=== PATIENT | male | born 1955 | race Caucasian/White ===

== ENCOUNTER 2018-04-28 21:45 | Emergency (ER) | payer MEDICARE, OTHER ==
[2018-04-28 22:59] LABS: CHLORIDE,CL 103 mmol/L (98-107); SODIUM,NA 140 mmol/L (136-145)
[2018-04-28 23:03] LABS: ANION GAP 10.8 mmol/L (10-20)
[2018-04-28] MEDS: Iopamidol 612 MG/ML 100 ML Bottle IVPUSH ONE (23:22)
--- NOTE | 2018-05-01 07:37 | EDM.PDOC ---
ED HPI GENERAL MEDICAL PROBLEM - General Chief Complaint: Chest Pain Stated Complaint: Left mid chest/back pain, mets cancer Time Seen by Provider: 04/28/18 22:00 Source of Information: Reports: Patient History Limitations: Reports: No Limitations - History of Present Illness INITIAL COMMENTS - FREE TEXT/NARRATIVE: Pt. presents to ER with left sided anterior chest pain, respirophasic in nature. Pt. has diagnosed with metastatic colon CA, and is on hospice. He is not experiencing any increased shortness of breath, but he does suffer from severe COPD. He was started on hospice. Because the family has brought him to the ER, hospice has informed the patient and ER that he will be being discharged from hospice. Pt. daughter and daughter in law state that they have not been accompanying pt. to his oncology appointments, and state that they are unaware of his prognosis or clear diagnosis. Pt. states that he is not experiencing any calf pain, abdominal pain, or headache. He has had issues with atypical chest pain in the past secondary to COPD. He has not been experiencing any significant cough, congestion, fever or chills. He characterizes the discomfort as sharp with radiation into the back and worse with movement. Location: Reports: Chest, Back Quality: Reports: Sharp, Stabbing Severity: Moderate Improves with: Reports: Rest Worsens with: Reports: Movement Treatments POLICY CHANGE CLERK: Reports: Other (see below) Other Treatments POLICY CHANGE CLERK: Oxycodone prior to coming in. left mid chest/back Pain Score (Numeric/FACES): 3 - Related Data Allergies Allergy/AdvReac Type Severity Reaction Status Date / Time acetaminophen [From Tylenol] Allergy Other Verified 04/28/18 22:26 Past Medical History Cardiovascular History: Reports: Afib, Heart Failure, Other (See Below) Other Cardiovascular History: Pericardial effusion, Respiratory History: Reports: Bronchitis, Recurrent, COPD Other Respiratory History: hypoxia Gastrointestinal History: Reports: Other (See Below) Other Gastrointestinal History: Bowel obstuction Endocrine/Metabolic History: Reports: Other (See Below) Other Endocrine/Metabolic History: Hypomagnesemia - Past Surgical History GI Surgical History: Reports: Colostomy Other GI Surgeries/Procedures: Metastatic adenocarcinoma ED ROS GENERAL - Review of Systems Review Of Systems: See Below Constitutional: Reports: Malaise, Weakness, Fatigue, Decreased Appetite. Denies : Fever, Chills HEENT: Reports: No Symptoms Respiratory: Reports: Shortness of Breath, Pleuritic Chest Pain. Denies: Cough , Sputum, Hemoptysis Cardiovascular: Reports: Chest Pain, Dyspnea on Exertion. Denies: Lightheadedness, Orthopnea, Palpitations, PND Endocrine: Reports: No Symptoms GI/Abdominal: Reports: No Symptoms : Reports: Other (History of stage 4 colon cancer) Musculoskeletal: Reports: No Symptoms Skin: Reports: No Symptoms Neurological: Reports: No Symptoms Psychiatric: Reports: No Symptoms Hematologic/Lymphatic: Reports: No Symptoms Immunologic: Reports: No Symptoms ED EXAM, GENERAL - Physical Exam Exam: See Below Exam Limited By: No Limitations General Appearance: Alert, WD/WN, Anxious, Mild Distress, Cachetic Eye Exam: Bilateral Eye: EOMI, Normal Fundi, Normal Inspection, PERRL Throat/Mouth: Normal Inspection, Normal Lips, Normal Gums, Normal Oropharynx, Normal Voice, No Airway Compromise Head: Atraumatic, Normocephalic Neck: Normal Inspection, Supple, Non-Tender, Full Range of Motion Respiratory/Chest: Decreased Breath Sounds, Prolonged Expiration, Other (non- reproducible chest wall pain) EKG INTERPRETATION Rhythm: A-Fib QRS: Normal ST-T: Normal QT: Normal Comparison: NA - No Prior EKG Course - Vital Signs Last Recorded V/S: Last Vital Signs Temp 36.8 C 04/28/18 21:45 Pulse 100 04/28/18 21:45 Resp 20 04/28/18 21:45 BP 107/77 04/28/18 21:45 Pulse Ox 96 04/28/18 21:45 - Orders/Labs/Meds Labs: Laboratory Tests 04/28/18 04/28/18 04/28/18 Range/Units 22:22 22:22 22:22 WBC 7.8 (4.0-10.0) x10^3/uL RBC 3.98 L (4.5-6.0) x10^6/uL Hgb 10.2 L (14.0-18.0) g/dL Hct 32.5 L (40.0-52.0) % MCV 81.7 (78.0-93.0) fL MCH 25.6 L (26.0-32.0) pg MCHC 31.4 L (32.0-36.0) g/dL RDW Coeff of Sanchez 18.3 H (10.0-15.0) % Plt Count 447 H (130-400) x10^3/uL Neut % (Auto) 73.9 (50.0-80.0) % Lymph % (Auto) 13.8 L (25.0-50.0) % [place] % (Auto) 8.5 (2.0-11.0) % Eos % (Auto) 3.2 (0.0-4.0) % Baso % (Auto) 0.6 (0.2-1.2) % PT 54.2 H (9.6-11.4) SEC INR 5.3 H* (2.0-3.5) D-Dimer, Quantitative 0.99 H (<=0.58) mg/LFEU Sodium 140 (136-145) mmol/L Potassium 2.8 L* (3.5-5.1) mmol/L Chloride 103 (98-107) mmol/L Carbon Dioxide 29 (21-32) mmol/L Anion Gap 10.8 (10-20) mmol/L BUN 8 (7-18) mg/dL Creatinine 0.9 (0.70-1.30) mg/dL Est Cr Clr Drug Dosing 82.99 mL/min Estimated GFR (MDRD) > 60 Glucose 138 H (74-106) mg/dL Calcium 10.3 H (8.5-10.1) mg/dL Corrected Calcium 11.90 H (8.5-10.1) mg/dL Total Bilirubin 0.7 (0.2-1.0) mg/dL AST 173 H (15-37) U/L ALT 164 H (16-63) U/L Alkaline Phosphatase 793 H (46-116) U/L Troponin I < 0.017 (<=0.056) ng/mL C-Reactive Protein 6.1 H (<=0.9) mg/dL Total Protein 6.7 (6.4-8.2) g/dL Albumin 2.0 L (3.4-5.0) g/dL Globulin 4.7 Albumin/Globulin Ratio 0.43 Meds: Medications Discontinued Medications Generic Name Dose Route Start Last Admin Trade Name Freq PRN Reason Stop Dose Admin Iopamidol 100 ml 04/28/18 23:12 04/28/18 23:22 Isovue-300 (61%) IVPUSH 04/28/18 23:13 100 ml ONETIME ONE Administration - Radiology Interpretation Free Text/Narrative:: chest x ray did not reveal any acute process. There was hyperinflation consistent with COPD. CT angiogram of the chest was negative for PE or other acute pathology. There were scattered densities in the chest consistent with metastatic disease. Departure - Departure Time of Disposition: 23:50 Disposition: Home, Self-Care 01 Clinical Impression: Atypical chest pain - Discharge Information Instructions: Nonspecific Chest Pain, [id number] Referrals: Raiza Ding DO [Primary Care Provider] - Forms: ED Department Discharge Additional Instructions: The cause of your pain is either due to your COPD, cancer, or both. Your cardiac workup was normal. There is no embolism in your lung. Continue with oral pain medication at needed for pain. Follow-up in clinic as needed. - Assessment/Plan Plan: Hold coumadin for 2 doses. Follow-up in clinic within the next 2-3 days. They are interested in starting on hospice again and will be looking into this. I did discuss the diagnosis and prognosis with the patient and family.
== END 2018-04-28 23:50 | disposition home or self-care (01) ==
LOC: MERGE 21:45 → VM.ED 21:45
DX: R07.89 Other chest pain (principal); C18.9 Malignant neoplasm of colon, unspecified; C79.9 Secondary malignant neoplasm of unspecified site; J44.9 Chronic obstructive pulmonary disease, unspecified; I50.9 Heart failure, unspecified; Z88.8 Allergy status to other drugs, medicaments and biological substances
CPT/HCPCS: 36415; 71046; 71275; 80053; 84484; 85025; 85379; 85610; 86140; 93005; 99285; Q9967

== ENCOUNTER 2018-05-11 22:38 | Inpatient (IN) | payer MEDICARE, OTHER ==
[2018-05-11] MEDS ORDERED: Lactated Ringers 1,000 ML IV ONE (23:00)
[2018-05-11] MEDS ORDERED: Sodium Chloride 0.9% 10 ML Syringe FLUSH PRN (23:00)
--- NOTE | 2018-05-11 23:06 | EDM.PDOC ---
ED HPI GENERAL MEDICAL PROBLEM - General Chief Complaint: Syncope Stated Complaint: syncope, weak Time Seen by Provider: 05/11/18 22:46 Source of Information: Reports: Patient History Limitations: Reports: No Limitations - History of Present Illness INITIAL COMMENTS - FREE TEXT/NARRATIVE: Please use ER history and physical for admission H and P. Patient with known metastatic colon cancer and on hospice is brought in this evening with reports of being weak, and having a syncopal episode today. He does still live at home alone. He was out with his sons earlier today when the syncopal event took place. He was here 05/01/18 and had an entire work up for chest pain which was negative for [place], PE, but he did have an elevated INR. Warfarin was held for 2 days. Chest x-ray at that time did show hyperinflation and scattered nodules indicating lung metastases. He does have pain to the left upper abdomen/rib cage. Rates it a 3/10. Does describe some shortness of breath, however he does have COPD and this is a chronic condition. He denies it is worse for him at this time. Denies any blood in stool, does admit to some in the urine. He does have a colostomy that is intact. No complaints with this. No complaints of headache, or neck pain. He denies recent fever, chills , night sweats, diaphoresis. He is aware that he has terminal cancer. Assist of 2 and wheelchair. Patient did sign out of hospice to be seen in the ER tonight. Onset: Gradual Duration: Getting Worse Location: Reports: Generalized Quality: Reports: Ache Severity: Mild Improves with: Reports: None Worsens with: Reports: Movement Context: Reports: Activity Associated Symptoms: Reports: Syncope - Related Data Allergies Allergy/AdvReac Type Severity Reaction Status Date / Time acetaminophen Allergy Nausea Verified 05/11/18 23:26 Home Meds: Home Meds Albuterol [Ventolin HFA] 2 puff INH Q4HR PRN 05/11/18 [History] Albuterol/Ipratropium [DuoNeb 3.0-0.5 MG/3 ML] 3 ml INH BID 05/11/18 [History] Morphine Sulfate [Morphine Sulfate ER] 15 mg PO Q12HR 05/11/18 [History] Morphine [Morphine 20 MG/ML Soln] 5 mg BUCCAL ASDIRECTED PRN 05/11/18 [History] predniSONE [Prednisone] 5 mg PO DAILY 05/11/18 [History] Past Medical History Cardiovascular History: Reports: Afib, Blood Clots/VTE/DVT, Heart Failure, Other (See Below) Other Cardiovascular History: Pericardial effusion, Respiratory History: Reports: Bronchitis, Recurrent, COPD Other Respiratory History: hypoxia Gastrointestinal History: Reports: Other (See Below) Other Gastrointestinal History: Bowel obstuction Musculoskeletal History: Reports: Other (See Below) Other Musculoskeletal History: Busted right elbows Endocrine/Metabolic History: Reports: Other (See Below) Other Endocrine/Metabolic History: Hypomagnesemia Oncologic (Cancer) History: Reports: Colon, Metastatic - Past Surgical History GI Surgical History: Reports: Colostomy Other GI Surgeries/Procedures: Metastatic adenocarcinoma Social & Family History - Caffeine Use Caffeine Use: Reports: Coffee, Soda ED ROS GENERAL - Review of Systems Review Of Systems: See Below Constitutional: Reports: Weakness, Weight Loss HEENT: Reports: No Symptoms Respiratory: Reports: Shortness of Breath Cardiovascular: Reports: No Symptoms Endocrine: Reports: Fatigue GI/Abdominal: Reports: Abdominal Pain, Anorexia, Constipation : Reports: Hematuria Musculoskeletal: Reports: No Symptoms Skin: Reports: No Symptoms Neurological: Reports: Syncope Psychiatric: Reports: No Symptoms Hematologic/Lymphatic: Reports: No Symptoms Immunologic: Reports: No Symptoms - Physical Exam Exam: See Below Exam Limited By: No Limitations General Appearance: Alert, WD/WN, No Apparent Distress Eye Exam: Bilateral Eye: EOMI, Papilledema, PERRL Ears: Normal TMs Nose: Normal Inspection, Normal Mucosa, No Blood Throat/Mouth: Normal Inspection, Normal Lips, Normal Teeth, Normal Gums, Normal Oropharynx, Normal Voice, No Airway Compromise Head Exam: Atraumatic, Normocephalic Neck: Normal Inspection Respiratory/Chest: Lungs Clear, No Accessory Muscle Use Cardiovascular: Normal Peripheral Pulses, No Rub, Irregularly Irregular GI/Abdominal: Normal Bowel Sounds, Soft, Non-Tender, No Organomegaly, No Distention, No Abnormal Bruit, No Mass, Guarding Neuro Exam (Abbreviated): Alert, Oriented, CN II-XII Intact, Normal Cognition, Normal Gait, Normal Reflexes, No Motor/Sensory Deficits Extremities: Normal Inspection, Normal Range of Motion, Non-Tender, No Pedal Edema, Normal Capillary Refill Psychiatric: Normal Affect, Normal Mood Skin Exam: Warm, Dry, Intact, Jaundice Departure - Departure Time of Disposition: 00:32 Disposition: Refer to Observation Clinical Impression: Dehydration, Warfarin-induced coagulopathy, CAP (community acquired pneumonia) - Discharge Information Forms: ED Department Discharge ED Communication - Discussed Case With (1) Discussed Case With (1): Other (I did call Dr. Ding regarding patient's presentation here. Suggested observation for rehydration, Vit. K administration.) - Problem List & Annotations (1) Colon carcinoma metastatic to multiple sites SNOMED Code(s): 59082779, 333392107 Code(s): C18.9 - MALIGNANT NEOPLASM OF COLON, UNSPECIFIED Status: Chronic Priority: High Current Visit: No (2) Dehydration SNOMED Code(s): 78404903 Code(s): E86.0 - DEHYDRATION Status: Acute Priority: Medium Current Visit: Yes - Problem List Review Problem List Initiated/Reviewed/Updated: Yes - Assessment/Plan Assessment:: dehydration coagulopathy weakness Plan: admit to observation for hydration, coagulopathy treatment 1. Dehydration rehydrate with fluids - LR at 125 mL/hr, reevaluate in AM with cmp 2. Coagulopathy Vitamin k administered in ER, repeat INR in AM 3. Weakness PT consultation for strengthening 4. Vulnerable adult/failure to thrive Social work consultation with Aidlia Hector in AM for possible swing bed admission 5. Community Acquired Pneumonia IV antibiotics - Rocephin, azithromycin
[2018-05-11 23:35] LABS: CHLORIDE,CL 100 mmol/L (98-107); SODIUM,NA 134 mmol/L (136-145)
[2018-05-11 23:38] LABS: ANION GAP 9.9 mmol/L (10-20)
[2018-05-12] MEDS: Lactated Ringers 1,000 ML IV SCH ×3 (01:41→17:56)
[2018-05-12] MEDS ORDERED: Ondansetron 4 MG Tab.DIS PO PRN (04:27)
[2018-05-12] MEDS ORDERED: Morphine 2 MG/ML Syringe IVPUSH PRN (04:27)
[2018-05-12] MEDS ORDERED: Albuterol 0.083% 2.5 MG/3 ML Neb Soln INH PRN (04:32)
[2018-05-12 08:07] LABS: CHLORIDE,CL 102 mmol/L (98-107); SODIUM,NA 134 mmol/L (136-145)
[2018-05-12 08:14] LABS: ANION GAP 5.8 mmol/L (10-20)
[2018-05-12] MEDS: Morphine 15 MG Tab.ER PO SCH ×2 (08:29→19:30)
[2018-05-12] MEDS: predniSONE 5 MG Tab PO SCH (08:31)
[2018-05-12] MEDS: Sertraline 25 MG Tab PO SCH (08:31)
[2018-05-12] MEDS: Albuterol/Ipratropium 3.0-0.5 MG/3 ML Neb Soln INH SCH ×2 (08:48→19:32)
[2018-05-12] MEDS ORDERED: Azithromycin 500 MG in Sodium Chloride 0.9% 250 ML IV SCH (10:30)
--- NOTE | 2018-05-12 11:29 | PCM.SN ---
- Free Text/Narrative Note: Phone call with SALONI Will, and Dr. Smiley Ding regarding patient status. Will change status to acute due to pneumonia and IV antibiotic treatment. Jorge to do admission orders today.
[2018-05-12] MEDS: cefTRIAXone 1 GM Vial IVPUSH SCH (11:38)
--- NOTE | 2018-05-12 19:28 | PCM.HP ---
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 He does still live at home alone. He was out with his sons earlier yesterday when the syncopal event took place. He was here and had an entire work up for chest pain which was negative for GA, PE, but he did have an elevated INR. Warfarin was held for 2 days. Chest x-ray at that time did show hyperinflation and scattered nodules indicating lung metastases. He does have pain to the left upper abdomen/rib cage. Rates it a 3 /10. Does describe some shortness of breath, however he does have COPD and this is a chronic condition. He denies it is worse for him at this time. Denies any blood in stool, does admit to some in the urine. He does have a colostomy that is intact. No complaints with this. No complaints of headache, or neck pain. He denies recent fever, chills, night sweats, diaphoresis. He is aware that he has terminal cancer. Assist of 2 and wheelchair. Patient did sign out of hospice to be seen in the ER last night. Patient was first diagnosed with Colon CA February 2018. He had been admitted to the hospital for COPD exacerbation when the diagnosis was made. It is felt by Oncology that the patient would not survive chemo or radiation due to the invasiveness of the cancer, so home Hospice was advised. Patient has had a considerable amount of weight loss over the past couple of months. His pain is controlled with Oxycodone and Morphine. Patient was also recently diagnosed with a DVT and started on Coumadin. His INR's of late have been supratherapeutic , possibly 2/2 to mets to liver. left side, LUQ abdomen Pain Score (Numeric/FACES): 3 - Related Data Allergies/Adverse Reactions: Allergies Allergy/AdvReac Type Severity Reaction Status Date / Time acetaminophen Allergy Nausea Verified 05/11/18 23:26 Home Medications: Home Meds Albuterol [Ventolin HFA] 1 - 2 puff INH Q4HR PRN 05/11/18 [History] Albuterol/Ipratropium [DuoNeb 3.0-0.5 MG/3 ML] 3 ml INH BID 05/11/18 [History] Morphine Sulfate [Morphine Sulfate ER] 15 mg PO Q12HR 05/11/18 [History] Morphine [Morphine 20 MG/ML Soln] 5 mg BUCCAL Q1H PRN 05/11/18 [History] predniSONE [Prednisone] 5 mg PO DAILY 05/11/18 [History] Sertraline [Zoloft] 25 mg PO DAILY 05/12/18 [History] Past Medical History Cardiovascular History: Reports: Afib, Blood Clots/VTE/DVT, Heart Failure, Other (See Below) Other Cardiovascular History: Pericardial effusion, Respiratory History: Reports: Bronchitis, Recurrent, COPD Other Respiratory History: hypoxia Gastrointestinal History: Reports: Other (See Below) Other Gastrointestinal History: Bowel obstuction Musculoskeletal History: Reports: Other (See Below) Other Musculoskeletal History: Busted right elbows Endocrine/Metabolic History: Reports: Other (See Below) Other Endocrine/Metabolic History: Hypomagnesemia Oncologic (Cancer) History: Reports: Colon, Metastatic - Past Surgical History GI Surgical History: Reports: Colostomy Other GI Surgeries/Procedures: Metastatic adenocarcinoma Social & Family History - Family History Family Medical History: Noncontributory - Tobacco Use Smoking Status *Q: Former Smoker Years of Tobacco use: 55 Packs/Tins Daily: 1 Used Tobacco, but Quit: Yes Month/Year Tobacco Last Used: 03/2018 Second Hand Smoke Exposure: No - Caffeine Use Caffeine Use: Reports: Coffee - Recreational Drug Use Recreational Drug Use: No - Living Situation & Occupation Living situation: Reports: Alone Occupation: Disabled H&P Review of Systems - Review of Systems: Review Of Systems: See Below General: Reports: Weakness, Fatigue, Decreased Appetite, Weight Loss. Denies: Fever, Chills Pulmonary: Reports: Shortness of Breath (chronic). Denies: Cough Cardiovascular: Denies: Chest Pain, Palpitations Gastrointestinal: Reports: Decreased Appetite, Nausea. Denies: Abdominal Pain, Black Stool, Bloody Stool, Diarrhea, Vomiting Skin: Reports: Jaundice Neurological: Reports: Weakness. Denies: Dizziness, Headache Exam - Exam Exam: See Below - Vital Signs Vital Signs: Last Vital Signs Temp 36.4 C 05/12/18 17:03 Pulse 113 H 05/12/18 17:03 Resp 20 05/12/18 17:03 BP 106/69 05/12/18 17:03 Pulse Ox 91 L 05/12/18 14:00 Weight: 70.307 kg - Exam Quality Assessment: Supplemental Oxygen. No: DVT Prophylaxis General: Alert, Cooperative HEENT: Other (jaundice bilateral) Lungs: Normal Respiratory Effort, Decreased Breath Sounds, Wheezing (end expiratory) Cardiovascular: Regular Rate, Regular Rhythm, Normal S1, Normal S2 GI/Abdominal Exam: Soft, Tender (generalized), Abnormal Bowel Sounds (Hypoactive ), Other (Colostomy LLQ; intact; light brown watery stools) Peripheral Pulses: 1+: Radial (L), Radial (R) Skin: Warm, Dry, Intact Neuro Extensive - Mental Status: Alert, Disorientation to Time. No: Disorientation to Person, Disorientation to Place Psychiatric: Labile Mood - Patient Data Lab Results Last 24 hrs: Laboratory Results - last 24 hr 05/11/18 05/11/18 05/11/18 Range/Units 23:00 23:00 23:00 WBC 13.7 H (4.0-10.0) x10^3/uL RBC 4.38 L (4.5-6.0) x10^6/uL Hgb 11.8 L D (14.0-18.0) g/dL Hct 37.2 L (40.0-52.0) % MCV 84.9 D (78.0-93.0) fL MCH 26.9 (26.0-32.0) pg MCHC 31.7 L (32.0-36.0) g/dL RDW Coeff of Sanchez 23.1 H (10.0-15.0) % Plt Count 364 D (130-400) x10^3/uL Add Manual Diff Yes Neutrophils % (Manual) 90 H (50-80) % Band Neutrophils % (0-6) % Lymphocytes % (Manual) 5 L (25-50) % Monocytes % (Manual) 4 (2-11) % Eosinophils % (Manual) 1 (0-4) % Basophils % (Manual) (0-1) % Platelet Estimate Adequate Hypochromasia Anisocytosis 1+ slight H Target Cells 1+ slight H PT 138.8 H D (9.6-11.4) SEC INR 13.6 H* (2.0-3.5) Sodium 134 L (136-145) mmol/L Potassium 3.9 (3.5-5.1) mmol/L Chloride 100 (98-107) mmol/L Carbon Dioxide 28 (21-32) mmol/L Anion Gap 9.9 L (10-20) mmol/L BUN 21 H (7-18) mg/dL Creatinine 0.9 (0.70-1.30) mg/dL Est Cr Clr Drug Dosing TNP Estimated GFR (MDRD) > 60 Glucose 110 H (74-106) mg/dL Calcium 13.0 H* D (8.5-10.1) mg/dL Corrected Calcium 14.92 H* D (8.5-10.1) mg/dL Phosphorus (2.6-4.7) mg/dL Magnesium (1.8-2.4) mg/dL Total Bilirubin 10.9 H (0.2-1.0) mg/dL AST 128 H (15-37) U/L ALT 96 H (16-63) U/L Alkaline Phosphatase 1503 H (46-116) U/L Total Protein 6.5 (6.4-8.2) g/dL Albumin 1.6 L (3.4-5.0) g/dL Globulin 4.9 Albumin/Globulin Ratio 0.33 Amylase (25-115) U/L Urine Color (YELLOW) Urine Appearance (CLEAR) Urine pH (5.0-8.0) Ur Specific [place] Urine Protein (NEGATIVE) mg/dL Urine Glucose (UA) (NEGATIVE) mg/dL Urine Ketones (NEGATIVE) mg/dL Urine Occult Blood (NEGATIVE) Urine Nitrite (NEGATIVE) Urine Bilirubin (NEGATIVE) Urine Urobilinogen (0.2) EU/dL Ur Leukocyte Esterase (NEGATIVE) Urine RBC (NOT SEEN) /HPF Urine WBC (NOT SEEN) /HPF Ur Squamous Epith Cells (NEGATIVE) /HPF Urine Bacteria (NEGATIVE) /HPF Hyaline Casts (NEGATIVE) /HPF Urine Mucus (NEGATIVE) /LPF 05/11/18 05/11/18 05/12/18 Range/Units 23:00 23:38 07:15 WBC 12.8 H (4.0-10.0) x10^3/uL RBC 3.71 L (4.5-6.0) x10^6/uL Hgb 10.0 L D (14.0-18.0) g/dL Hct 31.4 L (40.0-52.0) % MCV 84.6 (78.0-93.0) fL MCH 27.0 (26.0-32.0) pg MCHC 31.8 L (32.0-36.0) g/dL RDW Coeff of Sanchez 23.2 H (10.0-15.0) % Plt Count 335 (130-400) x10^3/uL Add Manual Diff Yes Neutrophils % (Manual) 83 H (50-80) % Band Neutrophils % 11 H (0-6) % Lymphocytes % (Manual) 3 L (25-50) % Monocytes % (Manual) 1 L (2-11) % Eosinophils % (Manual) 1 (0-4) % Basophils % (Manual) 1 (0-1) % Platelet Estimate Adequate Hypochromasia 1+ slight H Anisocytosis 1+ slight H Target Cells PT (9.6-11.4) SEC INR (2.0-3.5) Sodium (136-145) mmol/L Potassium (3.5-5.1) mmol/L Chloride (98-107) mmol/L Carbon Dioxide (21-32) mmol/L Anion Gap (10-20) mmol/L BUN (7-18) mg/dL Creatinine (0.70-1.30) mg/dL Est Cr Clr Drug Dosing Estimated GFR (MDRD) Glucose (74-106) mg/dL Calcium (8.5-10.1) mg/dL Corrected Calcium (8.5-10.1) mg/dL Phosphorus (2.6-4.7) mg/dL Magnesium (1.8-2.4) mg/dL Total Bilirubin (0.2-1.0) mg/dL AST (15-37) U/L ALT (16-63) U/L Alkaline Phosphatase (46-116) U/L Total Protein (6.4-8.2) g/dL Albumin (3.4-5.0) g/dL Globulin Albumin/Globulin Ratio Amylase 28 (25-115) U/L Urine Color [place] H (YELLOW) Urine Appearance Slightly cloudy H (CLEAR) Urine pH 6.0 (5.0-8.0) Ur Specific [place] 1.020 Urine Protein 30 H (NEGATIVE) mg/dL Urine Glucose (UA) Negative (NEGATIVE) mg/dL Urine Ketones Negative (NEGATIVE) mg/dL Urine Occult Blood Negative (NEGATIVE) Urine Nitrite Negative (NEGATIVE) Urine Bilirubin Large H (NEGATIVE) Urine Urobilinogen 0.2 (0.2) EU/dL Ur Leukocyte Esterase Negative (NEGATIVE) Urine RBC Not seen (NOT SEEN) /HPF Urine WBC 0-5 (NOT SEEN) /HPF Ur Squamous Epith Cells Rare (NEGATIVE) /HPF Urine Bacteria Not seen (NEGATIVE) /HPF Hyaline Casts Occasional H (NEGATIVE) /HPF Urine Mucus Not seen (NEGATIVE) /LPF 05/12/18 05/12/18 05/12/18 Range/Units 07:15 07:15 11:12 WBC (4.0-10.0) x10^3/uL RBC (4.5-6.0) x10^6/uL Hgb (14.0-18.0) g/dL Hct (40.0-52.0) % MCV (78.0-93.0) fL MCH (26.0-32.0) pg MCHC (32.0-36.0) g/dL RDW Coeff of Sanchez (10.0-15.0) % Plt Count (130-400) x10^3/uL Add Manual Diff Neutrophils % (Manual) (50-80) % Band Neutrophils % (0-6) % Lymphocytes % (Manual) (25-50) % Monocytes % (Manual) (2-11) % Eosinophils % (Manual) (0-4) % Basophils % (Manual) (0-1) % Platelet Estimate Hypochromasia Anisocytosis Target Cells PT 72.0 H D (9.6-11.4) SEC INR 7.0 H* (2.0-3.5) Sodium 134 L (136-145) mmol/L Potassium 3.8 (3.5-5.1) mmol/L Chloride 102 (98-107) mmol/L Carbon Dioxide 30 (21-32) mmol/L Anion Gap 5.8 L (10-20) mmol/L BUN 21 H (7-18) mg/dL Creatinine 0.9 (0.70-1.30) mg/dL Est Cr Clr Drug Dosing 82.46 Estimated GFR (MDRD) > 60 Glucose 98 (74-106) mg/dL Calcium 12.4 H* (8.5-10.1) mg/dL Corrected Calcium 14.48 H* (8.5-10.1) mg/dL Phosphorus 2.8 (2.6-4.7) mg/dL Magnesium 1.9 (1.8-2.4) mg/dL Total Bilirubin 9.4 H (0.2-1.0) mg/dL AST 99 H (15-37) U/L ALT 84 H (16-63) U/L Alkaline Phosphatase 1281 H (46-116) U/L Total Protein 5.4 L (6.4-8.2) g/dL Albumin 1.4 L (3.4-5.0) g/dL Globulin 4.0 Albumin/Globulin Ratio 0.35 Amylase (25-115) U/L Urine Color (YELLOW) Urine Appearance (CLEAR) Urine pH (5.0-8.0) Ur Specific [place] Urine Protein (NEGATIVE) mg/dL Urine Glucose (UA) (NEGATIVE) mg/dL Urine Ketones (NEGATIVE) mg/dL Urine Occult Blood (NEGATIVE) Urine Nitrite (NEGATIVE) Urine Bilirubin (NEGATIVE) Urine Urobilinogen (0.2) EU/dL Ur Leukocyte Esterase (NEGATIVE) Urine RBC (NOT SEEN) /HPF Urine WBC (NOT SEEN) /HPF Ur Squamous Epith Cells (NEGATIVE) /HPF Urine Bacteria (NEGATIVE) /HPF Hyaline Casts (NEGATIVE) /HPF Urine Mucus (NEGATIVE) /LPF Result Diagrams: 05/12/18 07:15 05/12/18 07:15 *Q Meaningful Use (ADM) - VTE *Q VTE Mechanical Contraindications *Q: At Risk for Falls - Problem List (1) CAP (community acquired pneumonia) SNOMED Code(s): 245744009 ICD Code: J18.9 - PNEUMONIA, UNSPECIFIED ORGANISM Status: Acute Current Visit: Yes Onset Date: ~05/12/18 Problem Details: Bilateral lower lobe infiltrates Qualifiers: Laterality: unspecified laterality Qualified Code(s): J18.9 - Pneumonia, unspecified organism (2) Dehydration SNOMED Code(s): 77263674 ICD Code: E86.0 - DEHYDRATION Status: Acute Priority: Medium Current Visit: Yes (3) Warfarin-induced coagulopathy SNOMED Code(s): 98569951 ICD Code: D68.32 - HEMORRHAGIC DISORD D/T EXTRINSIC CIRCULATING ANTICOAGULANTS; T45.515A - ADVERSE EFFECT OF ANTICOAGULANTS, INITIAL ENCOUNTER Status: Acute Priority: High Current Visit: Yes (4) Weakness SNOMED Code(s): 15791191 ICD Code: R53.1 - WEAKNESS Status: Chronic Priority: Medium Current Visit: Yes (5) Adenocarcinoma SNOMED Code(s): 932010007, 200455375 ICD Code: C80.1 - MALIGNANT (PRIMARY) NEOPLASM, UNSPECIFIED Status: Chronic Priority: Medium Current Visit: Yes Onset Date: ~02/26/18 (6) Congestive heart failure SNOMED Code(s): 68270441 ICD Code: I50.9 - HEART FAILURE, UNSPECIFIED Status: Chronic Current Visit: No Qualifiers: Heart failure type: diastolic Heart failure chronicity: chronic Qualified Code(s): I50.32 - Chronic diastolic (congestive) heart failure (7) COPD (chronic obstructive pulmonary disease) SNOMED Code(s): 57622684 ICD Code: J44.9 - CHRONIC OBSTRUCTIVE PULMONARY DISEASE, UNSPECIFIED Status : Chronic Priority: Low Current Visit: No Qualifiers: COPD type: unspecified COPD Qualified Code(s): J44.9 - Chronic obstructive pulmonary disease, unspecified (8) Atrial flutter SNOMED Code(s): 0572379 ICD Code: I48.92 - UNSPECIFIED ATRIAL FLUTTER Status: Chronic Current Visit: No Qualifiers: Atrial flutter type: typical Qualified Code(s): I48.3 - Typical atrial flutter (9) DVT (deep venous thrombosis) SNOMED Code(s): 820539140 ICD Code: I82.409 - ACUTE EMBOLISM AND THOMBOS UNSP DEEP VN UNSP LOWER EXTREMITY Status: Chronic Priority: Medium Current Visit: No Qualifiers: DVT location: lower extremity Affected thrombotic vein of extremity: unspecified lower extremity distal vein Chronicity: chronic Laterality: right Qualified Code(s): I82.5Z1 - 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 Problem List Initiated/Reviewed/Updated: Yes Orders Last 24hrs: Active Orders 24 hr Category Date Time Status Patient Status [ADT] Routine ADT 05/12/18 12:55 Active Dietary Supplements [RC] BIDMEALS Care 05/12/18 11:50 Active Height and Weight [RC] .PRN Care 05/12/18 12:55 Active Intake and Output [RC] 06,18 Care 05/12/18 12:56 Active May Shower [RC] 08 Care 05/12/18 12:55 Active Oxygen Therapy [RC] .PRN Care 05/12/18 12:55 Active Oxygen Therapy [RC] 08, Care 05/12/18 04:27 Active RT Aerosol Therapy [RC] , Care 05/12/18 08:37 Active Up With Assistance [RC] , Care 05/12/18 04:27 Active Vital Signs [RC] 06,10,14,18,22,02 Care 05/12/18 04:27 Active Vital Signs [RC] 06,10,14,18,22,02 Care 05/12/18 12:55 Active Consult to Case Management [CONS] Routine Cons 05/12/18 08:53 Active Consult to Clinical Haematologist [CONS] Routine Cons 05/12/18 08:53 Active PT Evaluation and Treatment [CONS] Routine Cons 05/12/18 12:55 Active Respiratory Care Assess and Treatment [CONS] Routine Cons 05/12/18 08:41 Active Regular Diet [DIET] Diet 05/12/18 Breakfast Active Chest 1V Frontal [CR] Stat Exams 05/11/18 23:00 Taken BASIC METABOLIC PANEL,BMP [CHEM] Routine Lab 05/13/18 05:11 Ordered CBC WITH AUTO DIFF [HEME] Routine Lab 05/13/18 05:11 Ordered INR,PT,PROTHROMBIN TIME [COAG] Routine Lab 05/13/18 05:11 Ordered URINALYSIS W/MICROSCOPIC [UA W/MICROSCOPIC] [URIN] Stat Lab 05/11/18 23:38 Ordered Albuterol [Proventil Neb Soln] Med 05/12/18 04:32 Active 2.5 mg INH Q4H PRN Albuterol/Ipratropium [DuoNeb 3.0-0.5 MG/3 ML] Med 05/12/18 07:00 Active 3 ml INH BIDRT Azithromycin [Zithromax] 500 mg Med 05/12/18 11:13 Active Sodium Chloride 0.9% [Normal Saline] 250 ml IV DAILY Lactated Ringers [Ringers, Lactated] 1,000 ml Med 05/12/18 00:15 Active IV ASDIRECTED Morphine Med 05/12/18 04:27 Active 2 mg IVPUSH Q2H PRN Morphine [MS Contin] Med 05/12/18 08:00 Active 15 mg PO Q12HR Morphine [Morphine 20 MG/ML Soln] Med 05/12/18 04:26 Active 5 mg BUCCAL Q1H PRN Ondansetron [Zofran ODT] Med 05/12/18 04:27 Active 4 mg PO Q6H PRN Sertraline [Zoloft] Med 05/12/18 08:00 Active 25 mg PO DAILY Sodium Chloride 0.9% [Saline Flush] Med 05/11/18 23:00 Active 10 ml FLUSH ASDIRECTED PRN cefTRIAXone [Rocephin] Med 05/12/18 10:45 Active 1 gm IVPUSH DAILY oxyCODONE Med 05/12/18 04:27 Active 5 mg PO Q4H PRN predniSONE Med 05/12/18 08:00 Active 5 mg PO DAILY Saline Lock Insert [OM.PC] Routine Oth 05/11/18 23:00 Ordered Resuscitation Status Routine Resus Stat 05/12/18 04:27 Ordered Medication Orders Albuterol (Proventil Neb Soln) 2.5 mg INH Q4H PRN PRN Reason: SHORTNESS OF BREATH Albuterol/Ipratropium (Duoneb 3.0-0.5 Mg/3 Ml) 3 ml INH BIDRT [facility] Last Admin: 05/12/18 08:48 Dose: 3 ml Ceftriaxone Sodium (Rocephin) 1 gm IVPUSH DAILY [facility] Last Admin: 05/12/18 11:38 Dose: 1 gm Lactated Ringer's (Ringers, Lactated) 1,000 mls @ 125 mls/hr IV ASDIRECTED [facility] Last Admin: 05/12/18 17:56 Dose: 125 mls/hr Infusion: 05/12/18 16:38 Dose: 125 mls/hr Admin: 05/12/18 08:38 Dose: 125 mls/hr Infusion: 05/12/18 08:38 Dose: 125 mls/hr Admin: 05/12/18 01:41 Dose: 125 mls/hr Azithromycin 500 mg/ Sodium (Chloride) 250 mls @ 250 mls/hr IV DAILY [facility] Morphine Sulfate (Ms Contin) 15 mg PO Q12HR [facility] Last Admin: 05/12/18 08:29 Dose: 15 mg Morphine Sulfate (Morphine 20 Mg/Ml Soln) 5 mg BUCCAL Q1H PRN PRN Reason: Pain (severe 7-10) Morphine Sulfate (Morphine) 2 mg IVPUSH Q2H PRN PRN Reason: Pain (severe 7-10) Ondansetron HCl (Zofran Odt) 4 mg PO Q6H PRN PRN Reason: nausea, able to take PO Oxycodone HCl (Oxycodone) 5 mg PO Q4H PRN PRN Reason: Pain (moderate 4-6) Prednisone (Prednisone) 5 mg PO DAILY [facility] Last Admin: 05/12/18 08:31 Dose: 5 mg Sertraline HCl (Zoloft) 25 mg PO DAILY [facility] Last Admin: 05/12/18 08:31 Dose: 25 mg Sodium Chloride (Saline Flush) 10 ml FLUSH ASDIRECTED PRN PRN Reason: Keep Vein Open Assessment/Plan Comment:: 62 yo male with a past medical history of Stage 4C Adenocardinoma of the right colon, CHF, COPD, Atrial Flutter, LE DVT was admitted to the observation unit at [facility] yesterday for dehydration and a supratherapeutic INR. It was noted on chest xray the patient developed a bibasilar pneumonia, therefore, his status was changed to acute today as the patient will required moderately intensive treatment and expected stay will be longer than 48 hours. 1. Pneumonia - start Rocephin and Azithromycin IV; continue IVF hydration; unable to obtain blood cultures as abx therapy had already been started; Leukocytosis moderately elevated; need to encourage C/DB, use of I.S. 2. Dehydration - stable, continue IVF 3. Supratherapeutic INR - hold Coumadin and monitor daily INR; if 7 or less, no need for Vitamin K 4. Weakness - PT consult 5. Stage 4C Adenocarcinoma of the right colon - no improvement; consider re- admission to Hospice once patient is discharged 6. COPD - continue with nebs and home medications; smoking cessation 7. CHF - stable, continue with home medications 8. DVT - INR supratherapeutic at this time; monitor INR 9. Atrial Flutter - elevated INR; control rate as needed Will recheck blood work in the AM (05/13). Continue all other medications the same. Will consult PT and Resp care services. Case management is already involved with this patient. NOTE: This patient was seen and examined today by me as an provider
[2018-05-12] MEDS: MORPHINE 20 MG/ML BUCCAL PRN ×2 (22:34→23:55)
[2018-05-12] MEDS: oxyCODONE 5 MG Tab PO PRN (23:57)
[2018-05-13] MEDS: Lactated Ringers 1,000 ML IV SCH ×3 (00:04→19:36)
[2018-05-13] MEDS: MORPHINE 20 MG/ML BUCCAL PRN ×6 (02:54→22:18)
[2018-05-13] MEDS: Albuterol/Ipratropium 3.0-0.5 MG/3 ML Neb Soln INH SCH ×2 (07:09→19:43)
[2018-05-13 07:22] LABS: CHLORIDE,CL 102 mmol/L (98-107); SODIUM,NA 136 mmol/L (136-145)
[2018-05-13] MEDS: cefTRIAXone 1 GM Vial IVPUSH SCH (07:34)
[2018-05-13] MEDS: predniSONE 5 MG Tab PO SCH (07:34)
[2018-05-13] MEDS: Morphine 15 MG Tab.ER PO SCH ×2 (07:35→19:43)
[2018-05-13] MEDS: Sertraline 25 MG Tab PO SCH (07:35)
[2018-05-13] MEDS: Azithromycin 500 MG in Sodium Chloride 0.9% 250 ML IV SCH (07:35)
[2018-05-13 07:38] LABS: ANION GAP 8.4 mmol/L (10-20)
[2018-05-13] MEDS ORDERED: ALPRAZolam 0.25 MG Tab PO PRN (08:45)
[2018-05-13] MEDS: ALPRAZolam 0.5 MG Tab PO PRN ×2 (14:09→22:19)
[2018-05-14] MEDS: oxyCODONE 5 MG Tab PO PRN (00:57)
[2018-05-14] MEDS: MORPHINE 20 MG/ML BUCCAL PRN ×5 (01:02→22:13)
[2018-05-14] MEDS: Lactated Ringers 1,000 ML IV SCH ×3 (03:36→19:42)
[2018-05-14] MEDS: ALPRAZolam 0.5 MG Tab PO PRN ×2 (05:59→22:26)
[2018-05-14 07:21] LABS: CHLORIDE,CL 104 mmol/L (98-107); SODIUM,NA 137 mmol/L (136-145)
[2018-05-14 07:22] LABS: ANION GAP 7.3 mmol/L (10-20)
[2018-05-14] MEDS: Albuterol/Ipratropium 3.0-0.5 MG/3 ML Neb Soln INH SCH ×2 (07:23→19:42)
[2018-05-14] MEDS: cefTRIAXone 1 GM Vial IVPUSH SCH (08:14)
[2018-05-14] MEDS: Azithromycin 500 MG in Sodium Chloride 0.9% 250 ML IV SCH (08:15)
[2018-05-14] MEDS: Sertraline 25 MG Tab PO SCH (08:18)
[2018-05-14] MEDS: predniSONE 5 MG Tab PO SCH (08:18)
[2018-05-14] MEDS: Morphine 15 MG Tab.ER PO SCH ×2 (08:28→19:42)
--- NOTE | 2018-05-14 14:19 | PCM.PN ---
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 He is able to answer with yes/no responses. He states his pain is controlled. He does feel somewhat anxious. Otherwise, he offers no specific complaints Functional Status: Reports: Pain Controlled. Denies: Tolerating Diet, Ambulating Pain Score: 0 - Review of Systems General: Reports: Weakness, Fatigue, Malaise. Denies: Fever, Chills Pulmonary: Denies: Shortness of Breath, Cough Cardiovascular: Denies: Chest Pain, Palpitations Gastrointestinal: Denies: Abdominal Pain, Nausea, Vomiting Skin: Reports: Jaundice Neurological: Reports: No Symptoms - Patient Data Vitals - Most Recent: Last Vital Signs Temp 36.4 C 05/14/18 11:53 Pulse 107 H 05/14/18 11:53 Resp 12 05/14/18 11:53 BP 86/52 L 05/14/18 11:53 Pulse Ox 93 L 05/14/18 11:53 Weight - Most Recent: 70.307 kg I&O - Last 24 Hours: Intake & Output 05/13/18 05/14/18 05/14/18 22:59 06:59 14:59 Intake Total 2139 1566 0 Output Total 25 Balance 2114 1566 0 Lab Results Last 24 Hours: Laboratory Results - last 24 hr 05/14/18 05/14/18 Range/Units 06:45 06:45 WBC 14.5 H (4.0-10.0) x10^3/uL RBC 3.71 L (4.5-6.0) x10^6/uL Hgb 10.1 L (14.0-18.0) g/dL Hct 32.4 L (40.0-52.0) % MCV 87.3 (78.0-93.0) fL MCH 27.2 (26.0-32.0) pg MCHC 31.2 L (32.0-36.0) g/dL RDW Coeff of Sanchez 24.2 H (10.0-15.0) % Plt Count 297 (130-400) x10^3/uL Add Manual Diff Yes Neutrophils % (Manual) 85 H (50-80) % Band Neutrophils % 5 (0-6) % Lymphocytes % (Manual) 4 L (25-50) % Atypical Lymphs % 1 H (0) % Monocytes % (Manual) 2 (2-11) % Eosinophils % (Manual) 3 (0-4) % Platelet Estimate Adequate Hypochromasia 1+ slight H Anisocytosis 2+ moderate H Sodium 137 (136-145) mmol/L Potassium 3.3 L (3.5-5.1) mmol/L Chloride 104 (98-107) mmol/L Carbon Dioxide 29 (21-32) mmol/L Anion Gap 7.3 L (10-20) mmol/L BUN 19 H (7-18) mg/dL Creatinine 0.7 (0.70-1.30) mg/dL Est Cr Clr Drug Dosing 106.02 mL/min Estimated GFR (MDRD) > 60 Glucose 82 (74-106) mg/dL Calcium 11.8 H (8.5-10.1) mg/dL Med Orders - Current: Current Medications Albuterol (Proventil Neb Soln) 2.5 mg INH Q4H PRN PRN Reason: SHORTNESS OF BREATH Last Admin: 05/12/18 23:57 Dose: 2.5 mg Albuterol/Ipratropium (Duoneb 3.0-0.5 Mg/3 Ml) 3 ml INH BIDRT [facility] Last Admin: 05/14/18 07:23 Dose: 3 ml Alprazolam (Xanax) 1 mg PO Q6H PRN PRN Reason: Anxiety Last Admin: 05/14/18 05:59 Dose: 1 mg Ceftriaxone Sodium (Rocephin) 1 gm IVPUSH DAILY [facility] Last Admin: 05/14/18 08:14 Dose: 1 gm Lactated Ringer's (Ringers, Lactated) 1,000 mls @ 125 mls/hr IV ASDIRECTED [facility] Last Admin: 05/14/18 11:52 Dose: 125 mls/hr Azithromycin 500 mg/ Sodium (Chloride) 250 mls @ 250 mls/hr IV DAILY [facility] Last Admin: 05/14/18 08:15 Dose: 250 mls/hr Morphine Sulfate (Ms Contin) 15 mg PO Q12HR [facility] Last Admin: 05/14/18 08:28 Dose: 15 mg Morphine Sulfate (Morphine 20 Mg/Ml Soln) 5 mg BUCCAL Q1H PRN PRN Reason: Pain (severe 7-10) Last Admin: 05/14/18 08:18 Dose: 5 mg Morphine Sulfate (Morphine) 2 mg IVPUSH Q2H PRN PRN Reason: Pain (severe 7-10) Ondansetron HCl (Zofran Odt) 4 mg PO Q6H PRN PRN Reason: nausea, able to take PO Oxycodone HCl (Oxycodone) 5 mg PO Q4H PRN PRN Reason: Pain (moderate 4-6) Last Admin: 05/14/18 00:57 Dose: 5 mg Prednisone (Prednisone) 5 mg PO DAILY [facility] Last Admin: 05/14/18 08:18 Dose: 5 mg Sertraline HCl (Zoloft) 25 mg PO DAILY [facility] Last Admin: 05/14/18 08:18 Dose: 25 mg Sodium Chloride (Saline Flush) 10 ml FLUSH ASDIRECTED PRN PRN Reason: Keep Vein Open Last Admin: 05/14/18 08:14 Dose: 10 ml Discontinued Medications Alprazolam (Xanax) 0.25 mg PO Q6H PRN PRN Reason: Anxiety Last Admin: 05/13/18 09:35 Dose: 0.25 mg Lactated Ringer's (Ringers, Lactated) 1,000 mls @ 999 mls/hr IV .BOLUS ONE Stop: 05/12/18 00:00 Last Admin: 05/11/18 23:05 Dose: 999 mls/hr Azithromycin 500 mg/ Sodium (Chloride) 250 mls @ 250 mls/hr IV DAILY [facility] Last Admin: 05/12/18 11:38 Dose: 250 mls/hr Phytonadione (Aquamephyton) 2.5 mg SUBCUT ONETIME ONE Stop: 05/12/18 00:06 Last Admin: 05/12/18 00:28 Dose: 2.5 mg - Exam Quality Assessment: Supplemental Oxygen General: Alert, Cooperative, No Acute Distress Lungs: Clear to Auscultation, Normal Respiratory Effort, Decreased Breath Sounds Cardiovascular: Regular Rate, Regular Rhythm GI/Abdominal Exam: Soft, Non-Tender, Abnormal Bowel Sounds (Hypoactive) Extremities: Normal Inspection Peripheral Pulses: 1+: Radial (L), Radial (R) Skin: Warm, Dry, Intact, Other (generalized jaundice) Wound/Incisions: Other Neurological: No New Focal Deficit - Problem List & Annotations (1) CAP (community acquired pneumonia) SNOMED Code(s): 900494156 Code(s): J18.9 - PNEUMONIA, UNSPECIFIED ORGANISM Status: Resolved Current Visit: Yes Onset Date: ~05/12/18 Qualifiers: Laterality: unspecified laterality Qualified Code(s): J18.9 - Pneumonia, unspecified organism Annotation/Comment:: Bilateral lower lobe infiltrates (2) Dehydration SNOMED Code(s): 35572764 Code(s): E86.0 - DEHYDRATION Status: Resolved Priority: Medium Current Visit: Yes (3) Warfarin-induced coagulopathy SNOMED Code(s): 60702110 Code(s): D68.32 - HEMORRHAGIC DISORD D/T EXTRINSIC CIRCULATING ANTICOAGULANTS ; T45.515A - ADVERSE EFFECT OF ANTICOAGULANTS, INITIAL ENCOUNTER Status: Resolved Priority: High Current Visit: Yes (4) Weakness SNOMED Code(s): 39270800 Code(s): R53.1 - WEAKNESS Status: Chronic Priority: Medium Current Visit: Yes (5) Adenocarcinoma SNOMED Code(s): 972166691, 332294039 Code(s): C80.1 - MALIGNANT (PRIMARY) NEOPLASM, UNSPECIFIED Status: Chronic Priority: Medium Current Visit: Yes Onset Date: ~02/26/18 (6) Congestive heart failure SNOMED Code(s): 69121889 Code(s): I50.9 - HEART FAILURE, UNSPECIFIED Status: Chronic Current Visit : No Qualifiers: Heart failure type: diastolic Heart failure chronicity: chronic Qualified Code(s): I50.32 - Chronic diastolic (congestive) heart failure (7) COPD (chronic obstructive pulmonary disease) SNOMED Code(s): 91343979 Code(s): J44.9 - CHRONIC OBSTRUCTIVE PULMONARY DISEASE, UNSPECIFIED Status : Chronic Priority: Low Current Visit: No Qualifiers: COPD type: unspecified COPD Qualified Code(s): J44.9 - Chronic obstructive pulmonary disease, unspecified (8) Atrial flutter SNOMED Code(s): 7861759 Code(s): I48.92 - UNSPECIFIED ATRIAL FLUTTER Status: Chronic Current Visit: No Qualifiers: Atrial flutter type: typical Qualified Code(s): I48.3 - Typical atrial flutter (9) DVT (deep venous thrombosis) SNOMED Code(s): 027264089 Code(s): I82.409 - ACUTE EMBOLISM AND THOMBOS UNSP DEEP VN UNSP LOWER EXTREMITY Status: Chronic Priority: Medium Current Visit: No Qualifiers: DVT location: lower extremity Affected thrombotic vein of extremity: unspecified lower extremity distal vein Chronicity: chronic Laterality: right Qualified Code(s): I82.5Z1 - 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 - Problem List Review Problem List Initiated/Reviewed/Updated: Yes - My Orders Last 24 Hours: My Active Orders 05/14/18 10:00 Insert Murray Catheter [Insert Urinary Catheter] [OM.PC] Q24H 05/14/18 12:28 Urinary Catheter Assessment [RC] ASDIRECTED 05/14/18 Breakfast Soft Diet [DIET] 05/15/18 05:11 BASIC METABOLIC PANEL,BMP [CHEM] Routine - Assessment Assessment:: Pneumonia Weakness Dehydration Stage 4C Colon cancer Jaundice - Plan Plan:: 62 yo male with a past medical history of 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 It was noted on chest xray the patient developed a bibasilar pneumonia, therefore, his status was changed to acute as the patient will required moderately intensive treatment and expected stay will be longer than 48 hours. 1. Pneumonia - on Rocephin and Azithromycin IV; continue IVF hydration; unable to obtain blood cultures as abx therapy had already been started; persistent Leukocytosis moderately elevated; need to encourage C/DB, use of I.S. 2. Dehydration - stable, continue IVF 3. Supratherapeutic INR - hold Coumadin and monitor daily INR; if 7 or less, no need for Vitamin K 4. Weakness - PT consult 5. Stage 4C Adenocarcinoma of the right colon - no improvement; consider re- admission to Hospice once patient is discharged 6. COPD - continue with nebs and home medications; smoking cessation 7. CHF - stable, continue with home medications 8. DVT - INR supratherapeutic at this time; monitor INR 9. Atrial Flutter - elevated INR; control rate as needed Continue with acute cares for now. No changes with medications. Plan is for [facility] on . NOTE: This patient was seen and examined today by me as an provider
--- NOTE | 2018-05-14 14:40 | PCM.PN ---
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 He is able to answer with yes/no responses. He states his pain is controlled. He does feel somewhat anxious. Otherwise, he offers no specific complaints Functional Status: Reports: Pain Controlled. Denies: Tolerating Diet, Ambulating Pain Score: 0 - Review of Systems General: Reports: Other (Unable to obtain ROS, patient is very lethargic today) - Patient Data Vitals - Most Recent: Last Vital Signs Temp 36.4 C 05/14/18 11:53 Pulse 107 H 05/14/18 11:53 Resp 12 05/14/18 11:53 BP 86/52 L 05/14/18 11:53 Pulse Ox 93 L 05/14/18 11:53 Weight - Most Recent: 70.307 kg I&O - Last 24 Hours: Intake & Output 05/13/18 05/14/18 05/14/18 22:59 06:59 14:59 Intake Total 2139 1566 0 Output Total 25 Balance 2114 1566 0 Lab Results Last 24 Hours: Laboratory Results - last 24 hr 05/14/18 05/14/18 Range/Units 06:45 06:45 WBC 14.5 H (4.0-10.0) x10^3/uL RBC 3.71 L (4.5-6.0) x10^6/uL Hgb 10.1 L (14.0-18.0) g/dL Hct 32.4 L (40.0-52.0) % MCV 87.3 (78.0-93.0) fL MCH 27.2 (26.0-32.0) pg MCHC 31.2 L (32.0-36.0) g/dL RDW Coeff of Sanchez 24.2 H (10.0-15.0) % Plt Count 297 (130-400) x10^3/uL Add Manual Diff Yes Neutrophils % (Manual) 85 H (50-80) % Band Neutrophils % 5 (0-6) % Lymphocytes % (Manual) 4 L (25-50) % Atypical Lymphs % 1 H (0) % Monocytes % (Manual) 2 (2-11) % Eosinophils % (Manual) 3 (0-4) % Platelet Estimate Adequate Hypochromasia 1+ slight H Anisocytosis 2+ moderate H Sodium 137 (136-145) mmol/L Potassium 3.3 L (3.5-5.1) mmol/L Chloride 104 (98-107) mmol/L Carbon Dioxide 29 (21-32) mmol/L Anion Gap 7.3 L (10-20) mmol/L BUN 19 H (7-18) mg/dL Creatinine 0.7 (0.70-1.30) mg/dL Est Cr Clr Drug Dosing 106.02 mL/min Estimated GFR (MDRD) > 60 Glucose 82 (74-106) mg/dL Calcium 11.8 H (8.5-10.1) mg/dL Med Orders - Current: Current Medications Albuterol (Proventil Neb Soln) 2.5 mg INH Q4H PRN PRN Reason: SHORTNESS OF BREATH Last Admin: 05/12/18 23:57 Dose: 2.5 mg Albuterol/Ipratropium (Duoneb 3.0-0.5 Mg/3 Ml) 3 ml INH BIDRT [facility] Last Admin: 05/14/18 07:23 Dose: 3 ml Alprazolam (Xanax) 1 mg PO Q6H PRN PRN Reason: Anxiety Last Admin: 05/14/18 05:59 Dose: 1 mg Ceftriaxone Sodium (Rocephin) 1 gm IVPUSH DAILY [facility] Last Admin: 05/14/18 08:14 Dose: 1 gm Lactated Ringer's (Ringers, Lactated) 1,000 mls @ 125 mls/hr IV ASDIRECTED [facility] Last Admin: 05/14/18 11:52 Dose: 125 mls/hr Azithromycin 500 mg/ Sodium (Chloride) 250 mls @ 250 mls/hr IV DAILY [facility] Last Admin: 05/14/18 08:15 Dose: 250 mls/hr Morphine Sulfate (Ms Contin) 15 mg PO Q12HR [facility] Last Admin: 05/14/18 08:28 Dose: 15 mg Morphine Sulfate (Morphine 20 Mg/Ml Soln) 5 mg BUCCAL Q1H PRN PRN Reason: Pain (severe 7-10) Last Admin: 05/14/18 08:18 Dose: 5 mg Morphine Sulfate (Morphine) 2 mg IVPUSH Q2H PRN PRN Reason: Pain (severe 7-10) Ondansetron HCl (Zofran Odt) 4 mg PO Q6H PRN PRN Reason: nausea, able to take PO Oxycodone HCl (Oxycodone) 5 mg PO Q4H PRN PRN Reason: Pain (moderate 4-6) Last Admin: 05/14/18 00:57 Dose: 5 mg Prednisone (Prednisone) 5 mg PO DAILY [facility] Last Admin: 05/14/18 08:18 Dose: 5 mg Sertraline HCl (Zoloft) 25 mg PO DAILY [facility] Last Admin: 05/14/18 08:18 Dose: 25 mg Sodium Chloride (Saline Flush) 10 ml FLUSH ASDIRECTED PRN PRN Reason: Keep Vein Open Last Admin: 05/14/18 08:14 Dose: 10 ml Discontinued Medications Alprazolam (Xanax) 0.25 mg PO Q6H PRN PRN Reason: Anxiety Last Admin: 05/13/18 09:35 Dose: 0.25 mg Lactated Ringer's (Ringers, Lactated) 1,000 mls @ 999 mls/hr IV .BOLUS ONE Stop: 05/12/18 00:00 Last Admin: 05/11/18 23:05 Dose: 999 mls/hr Azithromycin 500 mg/ Sodium (Chloride) 250 mls @ 250 mls/hr IV DAILY [facility] Last Admin: 05/12/18 11:38 Dose: 250 mls/hr Phytonadione (Aquamephyton) 2.5 mg SUBCUT ONETIME ONE Stop: 05/12/18 00:06 Last Admin: 05/12/18 00:28 Dose: 2.5 mg - Exam Quality Assessment: Supplemental Oxygen, Urine Catheter General: Lethargic Neck: Supple Lungs: Clear to Auscultation, Normal Respiratory Effort, Decreased Breath Sounds Cardiovascular: Regular Rate, Regular Rhythm GI/Abdominal Exam: Soft, Non-Tender, Abnormal Bowel Sounds (Hypoactive) Peripheral Pulses: 1+: Radial (L), Radial (R) Skin: Warm, Dry, Intact, Other (jaundice) Neurological: No New Focal Deficit, Other (very lethargic today) - Problem List & Annotations (1) CAP (community acquired pneumonia) SNOMED Code(s): 921177974 Code(s): J18.9 - PNEUMONIA, UNSPECIFIED ORGANISM Status: Resolved Current Visit: Yes Onset Date: ~05/12/18 Qualifiers: Laterality: unspecified laterality Qualified Code(s): J18.9 - Pneumonia, unspecified organism Annotation/Comment:: Bilateral lower lobe infiltrates (2) Dehydration SNOMED Code(s): 64249207 Code(s): E86.0 - DEHYDRATION Status: Resolved Priority: Medium Current Visit: Yes (3) Warfarin-induced coagulopathy SNOMED Code(s): 05911219 Code(s): D68.32 - HEMORRHAGIC DISORD D/T EXTRINSIC CIRCULATING ANTICOAGULANTS ; T45.515A - ADVERSE EFFECT OF ANTICOAGULANTS, INITIAL ENCOUNTER Status: Resolved Priority: High Current Visit: Yes (4) Weakness SNOMED Code(s): 71709580 Code(s): R53.1 - WEAKNESS Status: Chronic Priority: Medium Current Visit: Yes (5) Adenocarcinoma SNOMED Code(s): 754750435, 665599096 Code(s): C80.1 - MALIGNANT (PRIMARY) NEOPLASM, UNSPECIFIED Status: Chronic Priority: Medium Current Visit: Yes Onset Date: ~02/26/18 (6) Congestive heart failure SNOMED Code(s): 63314669 Code(s): I50.9 - HEART FAILURE, UNSPECIFIED Status: Chronic Current Visit : No Qualifiers: Heart failure type: diastolic Heart failure chronicity: chronic Qualified Code(s): I50.32 - Chronic diastolic (congestive) heart failure (7) COPD (chronic obstructive pulmonary disease) SNOMED Code(s): 00530935 Code(s): J44.9 - CHRONIC OBSTRUCTIVE PULMONARY DISEASE, UNSPECIFIED Status : Chronic Priority: Low Current Visit: No Qualifiers: COPD type: unspecified COPD Qualified Code(s): J44.9 - Chronic obstructive pulmonary disease, unspecified (8) Atrial flutter SNOMED Code(s): 4989230 Code(s): I48.92 - UNSPECIFIED ATRIAL FLUTTER Status: Chronic Current Visit: No Qualifiers: Atrial flutter type: typical Qualified Code(s): I48.3 - Typical atrial flutter (9) DVT (deep venous thrombosis) SNOMED Code(s): 224801084 Code(s): I82.409 - ACUTE EMBOLISM AND THOMBOS UNSP DEEP VN UNSP LOWER EXTREMITY Status: Chronic Priority: Medium Current Visit: No Qualifiers: DVT location: lower extremity Affected thrombotic vein of extremity: unspecified lower extremity distal vein Chronicity: chronic Laterality: right Qualified Code(s): I82.5Z1 - 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 - Problem List Review Problem List Initiated/Reviewed/Updated: Yes - My Orders Last 24 Hours: My Active Orders 05/14/18 10:00 Insert Murray Catheter [Insert Urinary Catheter] [OM.PC] Q24H 05/14/18 12:28 Urinary Catheter Assessment [RC] ASDIRECTED 05/14/18 Breakfast Soft Diet [DIET] 05/15/18 05:11 BASIC METABOLIC PANEL,BMP [CHEM] Routine - Assessment Assessment:: Pneumonia Weakness Dehydration Stage 4C Colon cancer Jaundice - Plan Plan:: Hospital day #4 for a 62 yo male with a past medical history of 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 It was noted on chest xray the patient developed a bibasilar pneumonia, therefore, his status was changed to acute as the patient requires moderately intensive treatment and expected stay will be longer than 48 hours. 1. Pneumonia - on Rocephin and Azithromycin IV; continue IVF hydration; unable to obtain blood cultures as abx therapy had already been started; persistent Leukocytosis moderately elevated; need to encourage C/DB, use of I.S. 2. Dehydration - stable, continue IVF 3. Supratherapeutic INR - stable 4. Weakness - PT consult 5. Stage 4C Adenocarcinoma of the right colon - no improvement; [facility] tomorrow 6. COPD - continue with nebs and home medications; 7. CHF - stable, continue with home medications 8. DVT - INR supratherapeutic at this time; monitor INR as needed 9. Atrial Flutter - elevated INR; control rate as needed Continue with acute cares for now. No changes with medications. Plan is for [facility] tomorrow. Patient much more lethargic today. Will initiate [facility] orders tomorrow. Will increase Xanax for breakthrough anxiety NOTE: This patient was seen and examined today by me as an [facility] provider
[2018-05-15] MEDS: Lactated Ringers 1,000 ML IV SCH ×2 (01:43→11:33)
[2018-05-15] MEDS: MORPHINE 20 MG/ML BUCCAL PRN ×2 (04:20→05:59)
[2018-05-15 07:06] LABS: CHLORIDE,CL 105 mmol/L (98-107); SODIUM,NA 138 mmol/L (136-145)
[2018-05-15 07:08] LABS: ANION GAP 7.5 mmol/L (10-20)
[2018-05-15] MEDS: Albuterol/Ipratropium 3.0-0.5 MG/3 ML Neb Soln INH SCH (07:08)
[2018-05-15] MEDS: cefTRIAXone 1 GM Vial IVPUSH SCH (07:22)
[2018-05-15] MEDS: Azithromycin 500 MG in Sodium Chloride 0.9% 250 ML IV SCH (07:22)
[2018-05-15] MEDS: predniSONE 5 MG Tab PO SCH (07:22)
[2018-05-15] MEDS: Morphine 15 MG Tab.ER PO SCH (07:22)
[2018-05-15] MEDS: Sertraline 25 MG Tab PO SCH (07:23)
[2018-05-15] MEDS: ALPRAZolam 0.5 MG Tab PO PRN (07:23)
--- NOTE | 2018-05-15 13:01 | PCM.DCSUM1 ---
Discharge Summary - Hospital Course HPI Initial Comments: Patient with known metastatic colon cancer and on hospice is brought to the ED at [facility] on 05/11/2018 with reports of being weak, and having a syncopal episode yesterday. He does still live at home alone. He was out with his sons earlier yesterday when the syncopal event took place. He was here and had an entire work up for chest pain which was negative for ME, PE, but he did have an elevated INR. Warfarin was held for 2 days. Chest x-ray at that time did show hyperinflation and scattered nodules indicating lung metastases. He does have pain to the left upper abdomen/rib cage. Rates it a 3 /10. Does describe some shortness of breath, however he does have COPD and this is a chronic condition. He denies it is worse for him at this time. Denies any blood in stool, does admit to some in the urine. He does have a colostomy that is intact. No complaints with this. No complaints of headache, or neck pain. He denies recent fever, chills, night sweats, diaphoresis. He is aware that he has terminal cancer. Assist of 2 and wheelchair. Patient did sign out of hospice to be seen in the ER last night. Patient was first diagnosed with Colon CA February 2018. He had been admitted to the hospital for COPD exacerbation when the diagnosis was made. It is felt by Oncology that the patient would not survive chemo or radiation due to the invasiveness of the cancer, so home Hospice was advised. Patient has had a considerable amount of weight loss over the past couple of months. His pain is controlled with Oxycodone and Morphine. Patient was also recently diagnosed with a DVT and started on Coumadin. His INR's of late have been supratherapeutic , possibly 2/2 to mets to liver. Diagnosis: Stroke: No Modified [place] Scale: No Symptoms at All Modified [place] Scale Score: 0 - Discharge Data Discharge Date: 05/15/18 Discharge Disposition: DC/Tfer W/I Hosp To Swing 61 Condition: Poor - Discharge Diagnosis/Problem(s) (1) CAP (community acquired pneumonia) SNOMED Code(s): 753574376 ICD Code: J18.9 - PNEUMONIA, UNSPECIFIED ORGANISM Status: Resolved Current Visit: Yes Onset Date: ~05/12/18 Problem Details: Bilateral lower lobe infiltrates Qualifiers: Laterality: unspecified laterality Qualified Code(s): J18.9 - Pneumonia, unspecified organism (2) Dehydration SNOMED Code(s): 95088612 ICD Code: E86.0 - DEHYDRATION Status: Resolved Priority: Medium Current Visit: Yes (3) Warfarin-induced coagulopathy SNOMED Code(s): 23148224 ICD Code: D68.32 - HEMORRHAGIC DISORD D/T EXTRINSIC CIRCULATING ANTICOAGULANTS; T45.515A - ADVERSE EFFECT OF ANTICOAGULANTS, INITIAL ENCOUNTER Status: Resolved Priority: High Current Visit: Yes (4) Weakness SNOMED Code(s): 29314250 ICD Code: R53.1 - WEAKNESS Status: Chronic Priority: Medium Current Visit: Yes (5) Adenocarcinoma SNOMED Code(s): 509333679, 702927693 ICD Code: C80.1 - MALIGNANT (PRIMARY) NEOPLASM, UNSPECIFIED Status: Chronic Priority: Medium Current Visit: Yes Onset Date: ~02/26/18 (6) Congestive heart failure SNOMED Code(s): 42055777 ICD Code: I50.9 - HEART FAILURE, UNSPECIFIED Status: Chronic Current Visit: No Qualifiers: Heart failure type: diastolic Heart failure chronicity: chronic Qualified Code(s): I50.32 - Chronic diastolic (congestive) heart failure (7) COPD (chronic obstructive pulmonary disease) SNOMED Code(s): 43781265 ICD Code: J44.9 - CHRONIC OBSTRUCTIVE PULMONARY DISEASE, UNSPECIFIED Status : Chronic Priority: Low Current Visit: No Qualifiers: COPD type: unspecified COPD Qualified Code(s): J44.9 - Chronic obstructive pulmonary disease, unspecified (8) Atrial flutter SNOMED Code(s): 3749010 ICD Code: I48.92 - UNSPECIFIED ATRIAL FLUTTER Status: Chronic Current Visit: No Qualifiers: Atrial flutter type: typical Qualified Code(s): I48.3 - Typical atrial flutter (9) DVT (deep venous thrombosis) SNOMED Code(s): 218614900 ICD Code: I82.409 - ACUTE EMBOLISM AND THOMBOS UNSP DEEP VN UNSP LOWER EXTREMITY Status: Chronic Priority: Medium Current Visit: No Qualifiers: DVT location: lower extremity Affected thrombotic vein of extremity: unspecified lower extremity distal vein Chronicity: chronic Laterality: right Qualified Code(s): I82.5Z1 - 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 - Patient Summary/Data Operative Procedure(s) Performed: None Consults: Consultations 05/12/18 08:41 Respiratory Care Assess and Treatment [CONS] Routine 05/12/18 08:53 Consult to Case Management [CONS] Routine Consult to Aircraft Fuselage Framer [CONS] Routine 05/12/18 12:55 PT Evaluation and Treatment [CONS] Routine Labs Pending at D/C: None Recommended Follow-up Testing/Procedures: None Hospital Course: Patient continues to have a slow decline while on acute care. The patient had been continued on IV fluids and IV antibiotics for his bilateral lower lobe pneumonia. The patient continued to remain somewhat hemodynamically unstable in regards to his blood pressure. The patient's mentation has declined to the point where he is arousable but very lethargic. Murray remains in place as the patient is incontinent. The patient has not made any progress with his current health status. The patient continues to remain incontinent of stool. - Patient Instructions Diet: NPO (except meds) Activity: Bedrest - Discharge Plan *PRESCRIPTION DRUG MONITORING PROGRAM REVIEWED*: Not Applicable *COPY OF PRESCRIPTION DRUG MONITORING REPORT IN PATIENT MILO: Not Applicable Home Medications: Home Meds Morphine Sulfate [Morphine Sulfate ER] 15 mg PO Q12HR 05/11/18 [History] Morphine [Morphine 20 MG/ML Soln] 5 mg BUCCAL Q1H PRN 05/11/18 [History] Morphine 2 mg IVPUSH Q2H PRN syringe 05/15/18 [Rx] Ondansetron [Zofran ODT] 4 mg PO Q6H PRN tab.dis 05/15/18 [Rx] - Discharge Summary/Plan Comment DC Time >30 min.: Yes Discharge Summary/Plan Comment: Patient will be discharged from acute care today and admitted to our swing bed comfort cares unit. We have had multiple conversations with the patient's family in regards to the patient's decline in his condition and worsening symptoms secondary to metastatic colon cancer. The patient's family has agreed and think it is better if the patient is placed on comfort cares. The patient's family does not wish to pursue any additional treatments besides comfort cares. Therefore, the patient will be discharged from acute status today and changed to swing bed comfort cares. - General Info Date of Service: 05/15/18 Admission Dx/Problem (Free Text: Admission Diagnosis/Problem Admission Diagnosis/Problem Community Acquired Pneumonia Dehydration Supratherapeutic INR Weakness Invasive right colon moderately differentiated adenocarcinoma, Stage 4C Subjective Update: Patient is very obtunded and minimally responsive. Unable to obtain ROS due to medical condition. Functional Status: Reports: Pain Controlled - Patient Data Vitals - Most Recent: Last Vital Signs Temp 36.4 C 05/15/18 11:30 Pulse 108 H 05/15/18 11:30 Resp 20 05/15/18 11:30 BP 82/59 L 05/15/18 11:30 Pulse Ox 93 L 05/15/18 11:30 Weight - Most Recent: 70.307 kg I&O - Last 24 hours: Intake & Output 05/14/18 05/15/18 05/15/18 22:59 06:59 14:59 Intake Total 1725 1210 0 Output Total 900 300 Balance 825 910 0 Lab Results - Last 24 hrs: Laboratory Results - last 24 hr 05/15/18 Range/Units 06:17 Sodium 138 (136-145) mmol/L Potassium 3.5 (3.5-5.1) mmol/L Chloride 105 (98-107) mmol/L Carbon Dioxide 29 (21-32) mmol/L Anion Gap 7.5 L (10-20) mmol/L BUN 24 H (7-18) mg/dL Creatinine 0.8 (0.70-1.30) mg/dL Est Cr Clr Drug Dosing 92.77 mL/min Estimated GFR (MDRD) > 60 Glucose 67 L (74-106) mg/dL Calcium 11.8 H (8.5-10.1) mg/dL Med Orders - Current: Current Medications Albuterol (Proventil Neb Soln) 2.5 mg INH Q4H PRN PRN Reason: SHORTNESS OF BREATH Last Admin: 05/12/18 23:57 Dose: 2.5 mg Albuterol/Ipratropium (Duoneb 3.0-0.5 Mg/3 Ml) 3 ml INH BIDRT MANDY Last Admin: 05/15/18 07:08 Dose: 3 ml Alprazolam (Xanax) 1 mg PO Q6H PRN PRN Reason: Anxiety Last Admin: 05/15/18 07:23 Dose: 1 mg Ceftriaxone Sodium (Rocephin) 1 gm IVPUSH DAILY [facility] Last Admin: 05/15/18 07:22 Dose: 1 gm Lactated Ringer's (Ringers, Lactated) 1,000 mls @ 125 mls/hr IV ASDIRECTED [facility] Last Admin: 05/15/18 11:33 Dose: 125 mls/hr Azithromycin 500 mg/ Sodium (Chloride) 250 mls @ 250 mls/hr IV DAILY [facility] Last Admin: 05/15/18 07:22 Dose: 250 mls/hr Morphine Sulfate (Ms Contin) 15 mg PO Q12HR [facility] Last Admin: 05/15/18 07:22 Dose: 15 mg Morphine Sulfate (Morphine 20 Mg/Ml Soln) 5 mg BUCCAL Q1H PRN PRN Reason: Pain (severe 7-10) Last Admin: 05/15/18 05:59 Dose: 5 mg Morphine Sulfate (Morphine) 2 mg IVPUSH Q2H PRN PRN Reason: Pain (severe 7-10) Last Admin: 05/15/18 07:23 Dose: 2 mg Ondansetron HCl (Zofran Odt) 4 mg PO Q6H PRN PRN Reason: nausea, able to take PO Oxycodone HCl (Oxycodone) 5 mg PO Q4H PRN PRN Reason: Pain (moderate 4-6) Last Admin: 05/14/18 00:57 Dose: 5 mg Prednisone (Prednisone) 5 mg PO DAILY [facility] Last Admin: 05/15/18 07:22 Dose: 5 mg Sertraline HCl (Zoloft) 25 mg PO DAILY [facility] Last Admin: 05/15/18 07:23 Dose: 25 mg Sodium Chloride (Saline Flush) 10 ml FLUSH ASDIRECTED PRN PRN Reason: Keep Vein Open Last Admin: 05/14/18 08:14 Dose: 10 ml Discontinued Medications Alprazolam (Xanax) 0.25 mg PO Q6H PRN PRN Reason: Anxiety Last Admin: 05/13/18 09:35 Dose: 0.25 mg Lactated Ringer's (Ringers, Lactated) 1,000 mls @ 999 mls/hr IV .BOLUS ONE Stop: 05/12/18 00:00 Last Admin: 05/11/18 23:05 Dose: 999 mls/hr Azithromycin 500 mg/ Sodium (Chloride) 250 mls @ 250 mls/hr IV DAILY [facility] Last Admin: 05/12/18 11:38 Dose: 250 mls/hr Phytonadione (Aquamephyton) 2.5 mg SUBCUT ONETIME ONE Stop: 05/12/18 00:06 Last Admin: 05/12/18 00:28 Dose: 2.5 mg - Exam Quality Assessment: Reports: Supplemental Oxygen, Urine Catheter General: Reports: Obtunded HEENT: Reports: Other (Pupils are sluggish but equal) Lungs: Reports: Decreased Breath Sounds Cardiovascular: Reports: Regular Rate, Regular Rhythm GI/Abdominal Exam: Abnormal Bowel Sounds (Hypoactive) Skin: Reports: Warm, Dry, Intact Neurological: Reports: Other (obtunded) *Q Meaningful Use (DIS) - VTE *Q VTE Mechanical Contraindications *Q: At Risk for Falls
== END 2018-05-15 13:44 | disposition swing bed (61) | DRG 190 ==
LOC: VM.ED 22:38 → VM.MS 23:57 → OBSVTOIN 05-12 11:02
PROVIDERS: ADMIT Nurse Practitioner Family; ATTEND Family Medicine
DX: J44.0 Chronic obstructive pulmonary disease with (acute) lower respiratory infection (principal); J18.9 Pneumonia, unspecified organism; C18.9 Malignant neoplasm of colon, unspecified; R62.7 Adult failure to thrive; C18.2 Malignant neoplasm of ascending colon; C78.00 Secondary malignant neoplasm of unspecified lung; C78.7 Secondary malignant neoplasm of liver and intrahepatic bile duct; D68.9 Coagulation defect, unspecified; I50.32 Chronic diastolic (congestive) heart failure; I48.3 Typical atrial flutter; I82.5Z1 Chronic embolism and thrombosis of unspecified deep veins of right distal lower extremity; R17 Unspecified jaundice; Z51.5 Encounter for palliative care; Z66 Do not resuscitate; E86.0 Dehydration; I48.91 Unspecified atrial fibrillation; Z93.3 Colostomy status; Z79.01 Long term (current) use of anticoagulants; Z88.8 Allergy status to other drugs, medicaments and biological substances; Z79.899 Other long term (current) drug therapy; Z79.52 Long term (current) use of systemic steroids; Z87.891 Personal history of nicotine dependence
CPT/HCPCS: 36415; 51702; 71045; 80048; 80053; 81001; 82150; 83735; 84100; 85025; 85610; 94640; 94760; 96360; 96361; 96372; 99284-GF; 99285; A9270-GY; G0378; J0456; J0696; J2270; J3430; J7050; J7120; J7620-GY

== ENCOUNTER 2018-05-15 08:42 | Inpatient (IN) | payer MEDICARE, OTHER ==
[2018-05-15] MEDS ORDERED: Meclizine 25 MG Tab PO PRN (13:22)
[2018-05-15] MEDS ORDERED: Menthol/Zinc Oxide Ointment 3.5 GM Tube TOP PRN (13:22)
[2018-05-15] MEDS ORDERED: Ondansetron 4 MG Tab.DIS PO PRN (13:22)
[2018-05-15] MEDS ORDERED: Lidocaine 2% Viscous Solution 15 ML Cup PO PRN (13:22)
[2018-05-15] MEDS ORDERED: Ondansetron 4 MG/2 ML SDV IVPUSH PRN (14:10)
[2018-05-15] MEDS ORDERED: Morphine Oral Concentrate 20 MG/ML 30 ML Bottle SL PRN (14:12)
[2018-05-15] MEDS: Diazepam 5 MG/ML 10 ML Vial MDV IVPUSH PRN ×3 (15:09→23:08)
[2018-05-15] MEDS: Sodium Chloride 0.9% 10 ML Syringe FLUSH PRN ×3 (15:10→19:39)
[2018-05-15] MEDS: Morphine 4 MG/ML Syringe IVPUSH PRN ×3 (15:44→21:11)
[2018-05-16] MEDS: Morphine 4 MG/ML Syringe IVPUSH PRN ×8 (06:03→22:44)
[2018-05-16] MEDS: Diazepam 5 MG/ML 10 ML Vial MDV IVPUSH PRN ×8 (06:03→22:44)
[2018-05-16] MEDS: Atropine 1% Ophth Soln 5 ML BOTTLE SL PRN (11:37)
[2018-05-16] MEDS: Sodium Chloride 0.9% 10 ML Syringe FLUSH PRN ×2 (20:31→22:47)
[2018-05-17] MEDS: Diazepam 5 MG/ML 10 ML Vial MDV IVPUSH PRN ×7 (00:45→20:26)
[2018-05-17] MEDS: Morphine 4 MG/ML Syringe IVPUSH PRN ×7 (00:45→20:26)
[2018-05-17] MEDS: Sodium Chloride 0.9% 10 ML Syringe FLUSH PRN ×4 (00:49→20:30)
[2018-05-17] MEDS: Atropine 1% Ophth Soln 5 ML BOTTLE SL PRN ×3 (09:07→16:01)
--- NOTE | 2018-05-18 10:35 | PCM.DCSUM1 ---
Discharge Summary - Hospital Course HPI Initial Comments: 62 yo male patient admitted to acute cares last week for pneumonia, dehydration , and weakness. Patient with known colon CA currently under no Oncology interventions due to the invasiveness of the cancer. Patient did not improved from acute care, was then made comfort cares on Swing Bed per family request. NOTE: This patient was seen and examined by me as an [facility] provider Diagnosis: Stroke: No Modified [place] Scale: No Symptoms at All Modified [place] Scale Score: 0 - Discharge Data Discharge Date: 05/18/18 Discharge Disposition: 20 Preliminary Cause of *Q: Multi System Organ Failure Event(s) Leading to Patient's *Q: Patient with known colon CA. Patient admitted for worsening symptoms related his coloc CA. Patient with failure to thrive 2/2 to end stage colcon CA Condition: - Discharge Diagnosis/Problem(s) (1) Colon carcinoma metastatic to multiple sites SNOMED Code(s): 86389912, 595187313 ICD Code: C18.9 - MALIGNANT NEOPLASM OF COLON, UNSPECIFIED Status: Chronic Priority: High (2) Atrial flutter SNOMED Code(s): 6521706 ICD Code: I48.92 - UNSPECIFIED ATRIAL FLUTTER Status: Chronic Priority: Low Qualifiers: Atrial flutter type: typical (3) COPD (chronic obstructive pulmonary disease) SNOMED Code(s): 05868235 ICD Code: J44.9 - CHRONIC OBSTRUCTIVE PULMONARY DISEASE, UNSPECIFIED Status : Chronic Priority: Low Qualifiers: COPD type: unspecified COPD (4) Congestive heart failure SNOMED Code(s): 05876358 ICD Code: I50.9 - HEART FAILURE, UNSPECIFIED Status: Chronic Priority: Low Qualifiers: Heart failure type: unspecified (5) Weakness SNOMED Code(s): 02048591 ICD Code: R53.1 - WEAKNESS Status: Chronic Priority: Medium - Patient Summary/Data Operative Procedure(s) Performed: None Labs Pending at D/C: None Hospital Course: Patient admitted to Swing Bed for comfort cares 2/2 end stage colon CA per family request. - Discharge Plan *PRESCRIPTION DRUG MONITORING PROGRAM REVIEWED*: Not Applicable *COPY OF PRESCRIPTION DRUG MONITORING REPORT IN PATIENT MILO: Not Applicable Home Medications: Home Meds Morphine Sulfate [Morphine Sulfate ER] 15 mg PO Q12HR 05/11/18 [History] Morphine [Morphine 20 MG/ML Soln] 5 mg BUCCAL Q1H PRN 05/11/18 [History] Morphine 2 mg IVPUSH Q2H PRN syringe 05/15/18 [Rx] Ondansetron [Zofran ODT] 4 mg PO Q6H PRN tab.dis 05/15/18 [Rx] - Discharge Summary/Plan Comment DC Time >30 min.: No Discharge Summary/Plan Comment: End stage colon CA patient admitted to Swing Bed for comfort cares. Patient pronounced at 00:06 on 05/18/2018. No autopsy. Patient will be released to home of family's choice. - General Info Date of Service: 05/18/18 Admission Dx/Problem (Free Text: End Stage Colon CA Weakness CAP COPD CHF Subjective Update: Unable to assess, patient has - Patient Data Vitals - Most Recent: Last Vital Signs Temp 36.1 C 05/17/18 06:33 Pulse 132 H 05/17/18 06:33 Resp 19 05/17/18 06:33 BP 83/41 L 05/17/18 06:33 Pulse Ox 80 L 05/17/18 06:33 Weight - Most Recent: 70.307 kg Med Orders - Current: Current Medications Discontinued Medications Atropine Sulfate (Atropine 1% Ophth Soln) 0 ml SL Q2H PRN PRN Reason: Copius Secretions Last Admin: 05/17/18 16:01 Dose: 4 ml Calamine/Phenol (Calmoseptine) 1 gm TOP Q2H PRN PRN Reason: Irritation Diazepam (Valium) 5 mg IVPUSH Q1H PRN PRN Reason: Agitation Last Admin: 05/17/18 20:26 Dose: 5 mg Lidocaine HCl (Xylocaine 2% Viscous) 5 ml PO Q4H PRN PRN Reason: Pain Morphine Sulfate (Morphine) 4 mg IVPUSH Q1H PRN PRN Reason: Pain Last Admin: 05/17/18 20:26 Dose: 4 mg Morphine Sulfate (Morphine 20 Mg/Ml Soln) 5 mg SL Q1H PRN PRN Reason: Pain Ondansetron HCl (Zofran Odt) 4 mg PO Q4H PRN PRN Reason: Nausea/Vomiting Ondansetron HCl (Zofran) 4 mg IVPUSH Q6H PRN PRN Reason: Nausea Sodium Chloride (Saline Flush) 10 ml FLUSH ASDIRECTED PRN PRN Reason: Keep Vein Open Last Admin: 05/17/18 20:30 Dose: 10 ml - Exam Lungs: Reports: Other (No spontaneous breath sounds auscultated; no spontaneous respirations) Cardiovascular: Reports: Other (no spontaneous heart beat auscultated; no carotid pulse palpated) Neurological: Reports: Other (no spontaneous response to obnoxious stimuli; pupils non-reactive) *Q Meaningful Use (DIS) - VTE *Q VTE Mechanical Contraindications *Q: At Risk for Falls
== END 2018-05-18 05:39 | disposition expired | DRG 951 ==
LOC: VM.MS 13:44
PROVIDERS: ADMIT Family Medicine; ATTEND Family Medicine
DX: Z51.5 Encounter for palliative care (principal); J18.9 Pneumonia, unspecified organism; C18.2 Malignant neoplasm of ascending colon; I48.3 Typical atrial flutter; C78.00 Secondary malignant neoplasm of unspecified lung; C78.7 Secondary malignant neoplasm of liver and intrahepatic bile duct; I50.32 Chronic diastolic (congestive) heart failure; Z66 Do not resuscitate; I82.5Z1 Chronic embolism and thrombosis of unspecified deep veins of right distal lower extremity; J44.0 Chronic obstructive pulmonary disease with (acute) lower respiratory infection; E86.0 Dehydration; R53.1 Weakness; Z93.3 Colostomy status; Z79.899 Other long term (current) drug therapy; Z79.52 Long term (current) use of systemic steroids
CPT/HCPCS: 94760; A9270-GY; J2270; J3360; J7050